=== PATIENT | male | born 1965 | race Caucasian/White ===

== ENCOUNTER 2016-08-02 08:13 | Emergency (ER) | payer OTHER ==
[~2016-08-02] VITALS: Ht 172.7 cm; Wt 79.4 kg
[~2016-08-02 08:13] MED LIST: BUPROPION HYDR150 M1 PO; ESCITALOPRAM10 MG PO; FLUVIRIN 245 MCG/0.1 SC; MOTRIN 600 MG600 MG PO; SUBUTEX8 MG PO
[2016-08-02 08:18] VITALS: BP 151/83
[2016-08-02] MEDS ORDERED: CILOXAN5 ML OPH (08:38)
--- NOTE | 2016-08-02 08:40 | ED EYE COMPLAINT ---
History of Present Illness General Chief Complaint: Eye Problems Stated Complaint: PINK EYE Source: patient Exam Limitations: no limitations Vital Signs & Intake/Output Vital Signs & Intake/Output Vital Signs Date Time Temp Pulse Resp B/P Pulse O2 O2 Flow FiO2 Ox Delivery Rate 08/02 0818 98.3 81 20 151/83 99 Room Air Allergies Coded Allergies: penicillin V (Intermediate, HIVES 08/19/15) Reconcile Medications Buprenorphine Hydrochloride (Subutex) 8 MG TAB 1 TAB PO TID DRUGS (Reported) BUPROPION HCL (Bupropion XL) 150 MG TAB.ER.24H 1 TAB PO AT BEDTIME DEPRESSION (Reported) Ciprofloxacin (Ciloxan) 0.3 % DROPS 2 GTT OPH Q6 CONJUNCTIVITIS Escitalopram Oxalate 10 MG TABLET 1 TAB PO AT BEDTIME DEPRESSION (Reported) Ibuprofen (Motrin 600 MG Tab) 600 MG TABLET 1 TAB PO Q6P PRN BACK PAIN with food Triage Note: C/O LEFT EYE REDNESS, ITCHINESS AND FEELING "SCRATCHY", WITH YELLOW DRAINAGE SINCE THIS AM. Triage Nurses Notes Reviewed? yes HPI: Patient presents for evaluation of crusting of the left eye noted upon awakening today. In addition he states that both eyes and felt a bit uncomfortable with excessive tearing. He does get gonzalez seasonal allergy symptoms although he denies nasal congestion or sneezing at this point. He states that a lot of his coworkers have been getting pinkeye recently. He denies any chemical exposures at work. He denies trauma or foreign body into the eye. Symptoms have been constant described as mild to moderate. Nothing seems to make symptoms better or worse. Past History Travel History Traveled to [place] past 21 day No Medical History Any Pertinent Medical History? see below for history Tetanus Vaccine: 02/13/13 Surgical History Surgical History: non-contributory Psychosocial History What is your primary language Grenadian Family History Hx Contributory? No Review of Systems Review of Systems Constitutional: Reports: no symptoms. Eyes: Reports: see HPI. Ear: Reports: no symptoms. Nose: Reports: no symptoms. Mouth: Reports: no symptoms. Throat: Reports: no symptoms. Respiratory: Reports: no symptoms. Cardiovascular: Reports: no symptoms. GI: Reports: no symptoms. Genitourinary: Reports: no symptoms. Musculoskeletal: Reports: no symptoms. Skin: Reports: no symptoms. Neurological/Psychological: Reports: no symptoms. Hematologic/Endocrine: Reports: no symptoms. Immunologic/Allergic: Reports: no symptoms. All Other Systems: Reviewed and Negative Physical Exam General Appearance: SEE BELOW General Inspection: SEE BELOW General Inspection: SEE BELOW Physical Exam Comments: Gen.: Well-nourished, well-developed, no acute respiratory distress. Head: Normocephalic, atraumatic. Eyes: Eyes appear watery bilaterally with mild palpebral conjunctival injection and a suggestion of clear drainage. Eye examination is otherwise unremarkable bilaterally with slit lamp examination. Ears: Normal inspection bilaterally Nose: Normal inspection Throat/mouth : Moist mucosa Neck: Supple, full range of motioN Lungs: Quiet respirations Back: Normal range of motion Extremities: Normal range of motion grossly Neurologic: Cranial nerves grossly intact, speech is clear, gait is stable Skin: warm and dry Psychiatric: Calm, cooperative, no apparent delusions or hallucinations Progress Differential Diagnosis: corneal abrasion, corneal foreign body, conjunctivitis, glaucoma Plan of Care: See discharge instructions Departure Departure Disposition: HOME OR SELF CARE Condition: Stable Clinical Impression Primary Impression: Conjunctivitis Qualifiers: Conjunctivitis type: acute Acute conjunctivitis type: unspecified Laterality: bilateral Qualified Code: H10.33 - Unspecified acute conjunctivitis, bilateral Referrals: OLEG COPELAND,M. HERRERA (PCP/Family) Additional Instructions: Ciloxan drops as prescribed. [id number] nonsedating antihistamine. Ibuprofen 600 mg every 6 hours and Cool compresses to eyes as needed for comfort. Follow-up with your primary care doctor if not improved in 7 days. Return if any concerns or sudden worsening. Departure Forms: Customer Survey General Discharge Information RELEASE- WORK Prescriptions: Current Visit Scripts Ciprofloxacin (Ciloxan) 2 GTT OPH Q6 #5 ML
== END 2016-08-02 08:59 ==
LOC: ERH 08:13
DX: H10.9 Unspecified conjunctivitis (principal)

== ENCOUNTER 2016-11-15 20:40 | Emergency (ER) | payer OTHER ==
[~2016-11-15 20:40] MED LIST changes: +CILOXAN5 ML OPH
[2016-11-15 21:04] VITALS: BP 167/94
== END 2016-11-15 21:50 | disposition admitted as inpatient to this hospital (09) ==
LOC: ERH 20:40
DX: S01.81XA Laceration without foreign body of other part of head, initial encounter (principal)

== ENCOUNTER 2017-11-30 10:20 | Emergency (ER) | payer OTHER ==
[~2017-11-30] VITALS: Ht 172.7 cm; Wt 64.0 kg
[~2017-11-30 10:20] MED LIST changes: +BUPRENORPHINE HC8 MG PO; -SUBUTEX8 MG PO
[2017-11-30] MEDS ORDERED: LISINOPRIL10 M1 PO (11:07)
--- NOTE | 2017-11-30 11:36 | ED GI/GU/ABDOMINAL COMPLAINT ---
History of Present Illness General Chief Complaint: General Adult Stated Complaint: HEMORRHOIDS Source: patient Exam Limitations: no limitations Vital Signs & Intake/Output Vital Signs & Intake/Output Vital Signs Date Time Temp Pulse Resp B/P B/P Pulse O2 O2 Flow FiO2 Mean Ox Delivery Rate 11/30 1248 58 18 158/78 98 Room Air 11/30 1030 97.9 68 16 157/98 98 Room Air Allergies Coded Allergies: penicillin V (Intermediate, HIVES 08/19/15) Reconcile Medications Buprenorphine (Buprenorphine HCl) 8 MG TAB.SUBL 1 TAB PO TID MAINTNENCE ( Reported) Ketorolac Tromethamine 10 MG TABLET 1 TAB PO Q6P PRN PAIN (RECIEVED IV IN ED) Lisinopril 10 MG TABLET 1 TAB PO DAILY HEART (Reported) Triage Note: 52 HE HAS BEEN EVALD BY HIS DOCTOR, "HES PRESCRIBED EVERYTHING UNDER THE SUN AND ITS ONLY GETTING WORSE". STATES HE WAS REFERRED TO A SPECIALIST BUT UNABLE TO WAIT FOR APPT DUE TO WORSENING PAIN. Triage Nurses Notes Reviewed? yes Onset: Gradual Duration: week(s): (3 MONTHS ), constant, continues in ED, getting worse Timing: single episode today Quality/Severity: sharpness, throbbing Severity Numbers: 9 Location: perianal/rectal Radiation: no radiation Activities at Onset: none Prior Abdominal Problems: none Past Sexual History: Unobtainable at this time No Modifying Factors: none Modifying Factors: Worsens With: defecating, palpation. Associated Symptoms: RECTAL PAIN HPI: 52-year-old male history of substance abuse, attention presents for evaluation of perianal and rectal pain. Patient reports he has been dealing with hemorrhoids for the past 2 or 3 months. He seen his primary care doctor and has tried multiple topical medications without any improvement. He reports continued pain in his perianal area. The pain is worse with bowel movements. He does take Suboxone and has had problems with constipation in the past. He states and stool softeners without much improvement. He denies any bright red blood per rectum melena fever abdominal pain. No weight loss or night sweats. Has never had a colonoscopy. He does have an appointment on December 05 with a specialist to evaluate for surgical removal of hemorrhoids as well as a colonoscopy. He is not taking any by mouth medication for pain. No chest pain shortness of breath nausea vomiting or diarrhea. No personal family history of colon cancer. (Henry Kilpatrick) Past History Travel History Traveled to [place] past 21 day No Medical History Any Pertinent Medical History? see below for history Neurological: NONE EENT: NONE Cardiovascular: hypertension Respiratory: NONE Gastrointestinal: NONE Hepatic: NONE Renal: NONE Musculoskeletal: NONE Psychiatric: depression, substance abuse Endocrine: NONE Blood Disorders: NONE Cancer(s): NONE Tetanus Vaccine: 02/13/13 Surgical History Surgical History: non-contributory Psychosocial History What is your primary language Maltese Tobacco Use: Current Daily Use Daily Tobacco Use Amount/Type: => 5 Cigarettes daily Family History Hx Contributory? No (Henry Kilpatrick) Review of Systems Review of Systems Constitutional: Reports: no symptoms. EENTM: Reports: no symptoms. Respiratory: Reports: no symptoms. Cardiovascular: Reports: no symptoms. GI: Reports: see HPI, constipation. Genitourinary: Reports: no symptoms. Musculoskeletal: Reports: no symptoms. Skin: Reports: no symptoms. Neurological/Psychological: Reports: no symptoms. Hematologic/Endocrine: Reports: no symptoms. Immunologic/Allergic: Reports: no symptoms. All Other Systems: Reviewed and Negative (Henry Kilpatrick) Physical Exam Physical Exam General Appearance: well developed/nourished, no apparent distress, alert, awake Head: atraumatic, normal appearance Eyes: Bilateral: normal appearance, PERRL, EOMI. Ears, Nose, Throat, Mouth: hearing grossly normal, moist mucous membrane Neck: normal inspection, supple, full range of motion Respiratory: normal breath sounds, chest non-tender, no respiratory distress, lungs clear Cardiovascular: regular rate/rhythm, normal peripheral pulses Peripheral Pulses: 2+ radial (R), 2+ radial (L) Gastrointestinal: normal bowel sounds, soft, non-tender, no organomegaly Rectal: normal rectal tone, heme negative stool, hemmorrhoids, there is a single less than 0.5 cm external hemorrhoid located at the 6 o'clock position. It is nonthrombosed. No gross blood no focal fluctuant areas. No visible fistulas or fissures. No palpable internal hemorrhoids or masses. Back: normal inspection, normal range of motion Extremities: normal range of motion Neurologic/Psych: no motor/sensory deficits, awake, alert, oriented x 3, normal gait Skin: intact, normal color, warm/dry Core Measures ACS in differential dx? No Sepsis Present: No Sepsis Focused Exam Completed? No (Jaylon SALGADO,Henry) Progress Differential Diagnosis: hemorrhoids, inflamm bowel dis, PERIANAL ABSCESS, RECTAL ABSCESS, COLORECTAL CANCER, inflammatory bowel disease, proctitis Plan of Care: Orders Procedure Date/time Status COMPREHENSIVE METABOLIC PANEL 11/30 1122 Complete CBC WITHOUT DIFFERENTIAL 11/30 1122 Complete Laboratory Tests 11/30/17 1134: Anion Gap 11, Estimated GFR > 60, BUN/Creatinine Ratio 20.0, Glucose 108 H, Calcium 9.1, Total Bilirubin 0.3, AST 25, ALT 27, Alkaline Phosphatase 64, Total Protein 6.4, Albumin 3.7, Globulin 2.7, Albumin/Globulin Ratio 1.4, CBC w Diff NO MAN DIFF REQ, RBC 4.22 L, MCV 89.3, MCH 30.8, MCHC 34.5, RDW 12.8, MPV 7.1 L, Gran % 76.8 H, Lymphocytes % 17.1 L, Monocytes % 5.3, Eosinophils % 0.4, Basophils % 0.4, Absolute Granulocytes 5.6, Absolute Lymphocytes 1.3, Absolute Monocytes 0.4, Absolute Eosinophils 0, Absolute Basophils 0 Patient is here with her anal and rectal pain has been present for several months now. On exam he does have a single external nonthrombosed hemorrhoid. He's never had a colonoscopy. Due to the fact that the pain has been present for several months and continues to get worse and the presence of only a very small nonthrombosed external hemorrhoid a CT of the pelvis with contrast was ordered for further evaluation. Patient was medicated with IV Toradol. CT scan is negative for signs of inflammation or abscess. There is a periaortic enlarged lymph node without other signs of lymphadenopathy. Patient is feeling much better after Toradol. Reviewed all results of today's visit with patient. Advised him to continue Toradol by mouth every 6 hours as needed. Continue stool softeners topical treatments high fiber foods. SITZ BATHS. Patient has an appointment on December 05 with a specialist for surgical treatment. Discussed return precautions in detail. Patient agrees the plan Diagnostic Imaging: Viewed by Me: CT Scan. Discussed w/RAD: CT Scan. Radiology Impression: PATIENT: GRACY MARROQUIN PRESENT AGE: 52 PATIENT ACCOUNT NO: [id number] : 63 LOCATION: [facility] ORDERING PHYSICIAN: Henry SALGADO SERVICE DATE: 11/30/17 EXAM TYPE: CAT - CT PELVIS W IV CONTRAST EXAMINATION: CT PELVIS WITH IV CONTRAST CLINICAL INFORMATION: Perianal and perirectal pain for months. Assess for abscess or malignancy. COMPARISON: CT from 02/20/2014 TECHNIQUE: Helical scanning was performed with submillimeter collimation through the pelvis with 95 mL of Optiray 320 intravenous contrast. Sagittal and coronal multiplanar 2-D reconstructions were obtained. DLP: 199 mGy-cm FINDINGS: PELVIS: The bladder is distended without wall thickening. The visualized portion of the kidneys is unremarkable. There is increased prominence of retroperitoneal lymph nodes. Left para-aortic node has a short axis dimension of 1.2 cm, series 2 image 4. No inguinal lymphadenopathy. There is a normal appendix. The small bowel is normal in caliber without obstruction. Fecalization of the distal ileum suggests slow transit. The visualized colon demonstrates no wall thickening or inflammation. The perirectal fat is maintained. No evidence of perianal abscess. No abdominal wall hernia. The prostate and seminal vesicles are unremarkable. OSSEOUS STRUCTURES: No acute osseous abnormality. Mild degenerative changes at the lower lumbar spine. IMPRESSION: No bowel wall thickening or inflammation. The perirectal fat is maintained. No evidence of fistulization or abscess. There is suspicion for mild retroperitoneal lymphadenopathy which would be increased from prior. Partial visualization of what appears to be an enlarged left periaortic lymph node, measuring up to 1.2 cm in short axis dimension. No additional definite lymphadenopathy. DICTATED BY: Nahun Ruiz MD DATE/TIME DICTATED: 11/30/171314 DREDGE BOAT ENGINEER:ORLY DATE/TIME TRANSCRIBED:11/30/171314 CONFIDENTIAL, DO NOT COPY WITHOUT APPROPRIATE AUTHORIZATION. <Electronically signed in Other Vendor System> SIGNED BY: Nahun Ruiz MD 11/30/17 1323 Initial ED EKG: none (Jaylon SALGADO,Henry) Departure Departure Disposition: HOME OR SELF CARE Condition: Stable Clinical Impression Primary Impression: External hemorrhoid Referrals: Nimco COPELAND,Thang Mcrae (PCP/Family) Additional Instructions: Continue to take stool softeners high fiber foods. Continue to use topical medications as directed. He is ketorolac every 6 hours as needed for pain. Take this with food. Follow-up on Kera 3 as scheduled. Monitor symptoms closely return with any concerns. Review all results of today's visit with YOUr primary care doctor. Please go over all results of today's visit with your primary care doctor. Contact your primary care doctor to let them know you were here in the emergency room. There may be nonspecific findings which may not be related to your visit today here in the emergency room but may require further evaluation and chronic monitoring by your primary care doctor. If you had a laceration today the chance of foreign body always remains. You should follow-up with your primary care doctor for recheck in 3-5 days for a wound check. If you had an x-ray done there is a chance that a fracture could have been missed on initial read and you should follow-up with your primary care doctor for repeat x-rays if symptoms persist. If your blood pressure was elevated here in the emergency room please have rechecked by her primary care doctor within the next 48 hours by your primary care doctor. If you were prescribed a narcotic here in the emergency room or any type of controlled substances you're not allowed to drive while taking this medication or operate any type of heavy machinery. Narcotics can make you feel lightheaded dizziness nausea and can cause constipation. You may need to slat pickler a stool softener. Thank you for choosing [facility] emergency room. Please return to the emergency room immediately if you have any other concerns worsening of symptoms. Departure Forms: Customer Survey General Discharge Information Prescriptions: Current Visit Scripts Ketorolac Tromethamine 1 TAB PO Q6P PRN PAIN (RECIEVED IV IN ED) #20 TAB (Henry Kilpatrick) PA/JOB CHECKER Co-Sign Statement Statement: ED Attending supervision documentation- [] I saw and evaluated the patient. I have also reviewed all the pertinent lab results and diagnostic results. I agree with the findings and the plan of care as documented in the PA's/JOB CHECKER's documentation. [X] I have reviewed the ED Record and agree with the PA's/JOB CHECKER's documentation. [] Additions or exceptions (if any) to the PAs/JOB CHECKER's note and plan are summarized below: [] (Sage Moulton DO
[2017-11-30 11:44] LABS: ABSOLUTE BASOPHIL COUNT 0 /CUMM (0.0-0.2); ABSOLUTE EOSINOPHIL COUNT 0 /CUMM (0.0-0.7); ABSOLUTE GRANULOCYTE CT 5.6 /CUMM (1.4-6.5); ABSOLUTE LYMPH COUNT 1.3 /CUMM (1.2-3.4); ABSOLUTE MONOCYTE COUNT 0.4 /CUMM (0.10-0.60); BASOPHIL % 0.4 % (0.0-2.0); EOSINOPHIL % 0.4 % (0-5); GRANULOCYTE % 76.8 % (42.2-75.2); HEMATOCRIT 37.7 % (42-52); MEAN CORPUSCULAR HGB 30.8 PG (27.0-31.0); MEAN CORPUSCULAR HGB CONC 34.5 G/DL (33.0-37.0); MEAN CORPUSCULAR VOLUME 89.3 FL (80.0-94.0); MEAN PLATELET VOLUME 7.1 FL (7.4-10.4); PLATELET COUNT 300 /CUMM (130-400); RBC DISTRIBUTION WIDTH 12.8 % (11.5-14.5); RED BLOOD CELL CT 4.22 /CUMM (4.70-6.10); WHITE BLOOD CELL COUNT 7.3 /CUMM (4.8-10.8)
[2017-11-30 12:48] VITALS: BP 158/78
--- NOTE | 2017-11-30 13:27 | CT SCAN REPORT ---
EXAMINATION: CT PELVIS WITH IV CONTRAST CLINICAL INFORMATION: Perianal and perirectal pain for months. Assess for abscess or malignancy. COMPARISON: CT from 02/20/2014 TECHNIQUE: Helical scanning was performed with submillimeter collimation through the pelvis with 95 mL of Optiray 320 intravenous contrast. Sagittal and coronal multiplanar 2-D reconstructions were obtained. DLP: 199 mGy-cm FINDINGS: PELVIS: The bladder is distended without wall thickening. The visualized portion of the kidneys is unremarkable. There is increased prominence of retroperitoneal lymph nodes. Left para-aortic node has a short axis dimension of 1.2 cm, series 2 image 4. No inguinal lymphadenopathy. There is a normal appendix. The small bowel is normal in caliber without obstruction. Fecalization of the distal ileum suggests slow transit. The visualized colon demonstrates no wall thickening or inflammation. The perirectal fat is maintained. No evidence of perianal abscess. No abdominal wall hernia. The prostate and seminal vesicles are unremarkable. OSSEOUS STRUCTURES: No acute osseous abnormality. Mild degenerative changes at the lower lumbar spine. IMPRESSION: No bowel wall thickening or inflammation. The perirectal fat is maintained. No evidence of fistulization or abscess. There is suspicion for mild retroperitoneal lymphadenopathy which would be increased from prior. Partial visualization of what appears to be an enlarged left periaortic lymph node, measuring up to 1.2 cm in short axis dimension. No additional definite lymphadenopathy.
[2017-11-30] MEDS ORDERED: KETOROLAC TROME10 M1 PO (13:34)
== END 2017-11-30 13:44 ==
LOC: ERH 10:20
PROVIDERS: Physician Assistant Medical
DX: K64.4 Residual hemorrhoidal skin tags (principal)
CPT/HCPCS: 96374; J1885

== ENCOUNTER → 2018-02-28 | Day surgery (SDC) | payer OTHER ==
[~2018-02-28] VITALS: Ht 172.7 cm; Wt 66.2 kg
[~2018-02-28] MED LIST changes: +KETOROLAC TROME10 M1 PO; +LISINOPRIL10 M1 PO
--- NOTE | 2018-02-28 13:46 | Operative Report ---
Operative/Inv Procedure Report Surgery Date: 02/28/18 Name of Procedure: Left Port-A-Cath placement Pre-Operative Diagnosis: Metastatic rectal cancer Post-Operative Diagnosis: Same Estimated Blood Loss: less than 50ml Surgeon/Mathematics Faculty Member: Dustin COPELAND,Neeraj Abad Anesthesia: local monitored anesthesi Implants: [employer] Operative/Procedure Note Note: Patient brought to the operating room and laid supine. His arm tucked and a roll placed behind the shoulder. His left chest and neck were then prepped and draped. He was sedated. Using ultrasound imaging the left axillary vein was visualized and percutaneously accessed after local anesthesia placed. The vein was difficult to access, requiring 3 attempts due to inability to pass the wire. One attempt ended an inadvertent puncture of the subclavian artery. The needle was immediately extracted and direct pressure placed. Finally were able to access the axillary vein and passed a wire was placed on the right atrium. Confirmation with fluoroscopic imaging was performed. The left chest was then infiltrated further with local anesthesia an incision made over the wire. An inferiorly based pocket was created with blunt and cautery dissection. The port was placed into the pocket and the catheter measured under fluoroscopic imaging. It was trimmed to 27 cm. Using fluoroscopy the dilator was placed down into the SVC. The wire was removed and passed off the field. The catheter was placed through the peel-away sheath. Sheath was then removed. Final fluoroscopic images show the catheter in the atrial SVC junction. The catheter was aspirated and flushed with concentrated heparin. The port was anchored to the deep subcutaneous tissues tissues with 0 Vicryl suture. The skin was closed with 3-0 and 4-0 Vicryl. Steri-Strips and sterile dressing applied. Sponge and needle counts are correct. CC: Marcella COPELAND,Paras Irene; Nimco COPELAND,Jorge Thor
--- NOTE | 2018-02-28 14:51 | RADIOLOGY REPORT ---
EXAMINATION: XR PORTABLE CHEST CLINICAL INFORMATION: Status post left Port-A-Cath placement. Rule out pneumothorax. COMPARISON: CT chest dated 02/12/2018 TECHNIQUE: Portable frontal view of the chest was obtained. FINDINGS: Left subclavian Port-A-Cath tip terminates within the right atrium. No pneumothorax or pleural effusion. Patchy nodular opacities in the right midlung correspond to the known metastatic disease. No new consolidation. Pulmonary vasculature is normal. Cardiac and mediastinal contours are unremarkable. No acute osseous findings. IMPRESSION: The tip of the left subclavian Port-A-Cath terminates in the right atrium.
--- NOTE | 2018-03-01 07:56 | RADIOLOGY REPORT ---
EXAMINATION: Intraoperative fluoroscopy CLINICAL INFORMATION: Port insertion COMPARISON: None. TECHNIQUE: Intraoperative fluoroscopy was provided for use by Dr. Chan. A total of 11 images were saved to PACS. A radiologist was not present during imaging. TOTAL FLUOROSCOPIC TIME: 41 seconds FINDINGS\E\IMPRESSION: Intraoperative fluoroscopy provided for use by Dr. Chan. Please see operative note for detailed findings.
== END ==
LOC: STS 03:48
DX: C20 Malignant neoplasm of rectum (principal); I10 Essential (primary) hypertension; F17.200 Nicotine dependence, unspecified, uncomplicated
CPT/HCPCS: 71045; 76000; 93005; 93010; C1788; J1644; J2250